=== PATIENT | female | born 1960 | race Caucasian/White ===

== ENCOUNTER → 2017-07-07 | Day surgery (SDC) | payer BC ==
[~2017-07-07] MED LIST: Lactated Ringers 1,000 ML IV SCH; Propofol 200 MG/20 ML SDV IV ONE
--- NOTE | 2017-07-07 13:40 | OR ---
DATE OF OPERATION: 07/07/2017 PREOPERATIVE DIAGNOSIS: 1. EPIGASTRIC PAIN. 2. DYSPEPSIA. POSTOPERATIVE DIAGNOSIS: 1. EPIGASTRIC PAIN. 2. DYSPEPSIA. SURGEON: Sunny Pearson MD PROCEDURE: ESOPHAGOGASTRODUODENOSCOPY WITH BIOPSIES X2, KAY. ANESTHESIA: WARD SECRETARY due to the history of GERD. COMPLICATIONS: None. SPECIMEN: 1. Antral biopsy x2. 2. KAY. FINDINGS: 1. Full-length EGD. 2. Mild antral gastritis without erosion or ulceration. 3. No distal esophagitis, stricturing, ulceration, or spontaneous GERD visualized. RECOMMENDATIONS: Medical followup with Dr. Barros. I will put her on an empiric proton pump therapy until followup with Dr. Barros for biopsy reports. INDICATIONS: The patient has been having some ongoing dyspepsia, postprandial belching and bloating, and Dr. Barros recommended EGD. DESCRIPTION OF PROCEDURE: The patient was prepped and draped, placed in the left lateral decubitus position. A lubricated Olympus gastroscope was inserted and easily advanced to the cricopharyngeus area and intubated in the esophagus. The esophageal lining was benign in its entire course. The Z-line was crisp and sharp around 37 cm. There was no hiatal hernia seen. No spontaneous reflux. No distal esophagitis, stricturing, ulceration, or Haskins's changes visualized. The scope was advanced into the stomach through the pylorus, then into the second portion of the duodenum. This and the duodenal bulb were completely unremarkable. The scope was brought back into the stomach and retroflexed. The upper fundus and cardia were benign. Upon straightening, the rest of the fundus was unremarkable. The antrum does have some very mild but active gastritis present. No ulceration or erosion was seen. There were no polyps or masses throughout. Biopsy x2 of the antrum along with a CLOtest were obtained. Air was suctioned and the scope was removed without complication. The patient was stable in the recovery room. MARSHA/CONNIE /[id number]
[2017-07-07 13:41] VITALS: BP 106/61
== END ==
LOC: CC.SDS 11:18
PROVIDERS: ATTEND Family Medicine
DX: K29.70 Gastritis, unspecified, without bleeding (principal); K31.9 Disease of stomach and duodenum, unspecified; K21.9 Gastro-esophageal reflux disease without esophagitis; E78.5 Hyperlipidemia, unspecified; Z79.82 Long term (current) use of aspirin; Z79.899 Other long term (current) drug therapy
CPT/HCPCS: 43239; 87081; J2704